=== PATIENT | male | born 1995 | race Caucasian/White ===

== ENCOUNTER 2022-07-15 19:14 | Emergency (ER) | payer SELFPAY ==
[2022-07-15] MEDS ORDERED: Sodium Chloride 0.9% 1,000 ML ONE ×2 (19:23→20:14)
[2022-07-15] MEDS ORDERED: Ketorolac Tromethamine 30 MG/ML VIAL ONE (19:23)
[2022-07-15] MEDS ORDERED: Ondansetron PF 4 MG/2 ML Vial ONE ×2 (19:23→20:56)
[2022-07-15] MEDS ORDERED: Tamsulosin HCl 0.4 MG CAP ONE (20:14)
[2022-07-15 20:22] LABS: Clarity Turbid (Clear)
[2022-07-15 20:24] LABS: Specific Gravity, Urine 1.028 (1.002-1.036)
[2022-07-15 20:29] LABS: Bacteria/HPF 4+ HPF (None Seen); Mucous/LPF 3+ LPF (<2+); RBC/HPF Greater than 50 HPF (0-3)
[2022-07-15] MEDS ORDERED: cefTRIAXone (ROCEPHIN) 1 GM VIAL ONE (20:56)
[2022-07-15] MEDS ORDERED: Morphine 2 MG/ML VIAL ONE (21:26)
[2022-07-15] MEDS ORDERED: traMADol HCl 50 MG TAB ONE (21:55)
== END 2022-07-15 22:05 | disposition home or self-care (01) ==
LOC: NAV ERS 19:14
DX: N13.2 Hydronephrosis with renal and ureteral calculous obstruction (principal); N39.0 Urinary tract infection, site not specified; F17.210 Nicotine dependence, cigarettes, uncomplicated
CPT/HCPCS: 74176; 81003; 81015; 87086; 96361; 96374; 96375; J0696; J1885; J2272; J2405; J7050

== ENCOUNTER 2023-12-19 10:04 | Emergency (ER) | payer SELFPAY ==
[2023-12-19] MEDS ORDERED: Ketorolac Tromethamine 30 MG (1 mL) VIAL ONE (10:30)
[2023-12-19] MEDS ORDERED: Ondansetron PF 4 MG/2 ML Vial ONE (10:30)
[2023-12-19] MEDS ORDERED: Sodium Chloride 0.9% 1,000 ML ONE (10:31)
[2023-12-19 10:56] LABS: #Basophils 0.1 thou/uL (0.0-0.2); #Eosinphils 0.1 thou/uL (0.0-0.7); #Lymphocytes 3.2 thou/uL (1.20-3.40); #Monocytes 1.3 thou/uL (0.11-0.59); #Neutrophils 15.3 thou/uL (1.40-6.50); %Basophils 0.7 % (0.0-1.0); %Eosinophils 0.5 % (0.0-10.0); %Lymphocytes 16.1 % (21.0-51.0); %Monocytes 6.4 % (0.0-10.0); %Neutrophils 76.3 % (42.0-75.0); Hematocrit 48.9 % (42.0-52.0); Hemoglobin 15.6 g/dL (14.0-18.0); Mean Corpuscular HGB CONC 31.9 g/dL (32.0-36.0); Mean Corpuscular Hemoglobin 29.2 pg (27.0-31.0); Mean Corpuscular Volume 91.6 fl (78.0-98.0); Mean Platelet Volume 8.5 fL (7.4-10.4); Platelet Count 257 10x3/uL (130-400); Red Blood Cell (RBC) Count 5.33 mill/uL (4.70-6.10); White Blood Cell (WBC) Count 20.1 10x3/uL (4.8-10.8)
[2023-12-19 11:04] LABS: Anion Gap 17 mmol/L (10-20); BUN (Urea Nitrogen) 12 mg/dL (8.9-20.6); Calc. Creatinine Clearance 0 mL/min (70-130); Calcium 10.3 mg/dL (7.8-10.44); Carbon Dioxide 26 mmol/L (22-29); Chloride 105 mmol/L (98-107); Estimated GFR 78; Glucose 156 mg/dL (70-105); Potassium 4.6 mmol/L (3.5-5.1); Sodium 143 mmol/L (136-145)
[2023-12-19 11:08] LABS: Bicarbonate (HCO3v) 30.4 mmol/L (22.0-28.0); CO2 Tension (PvCO2) 55.4 mmHg (42.0-51.0); Calcium, Ionized 1.22 mmol/L (1.15-1.33); Chloride 108 mmol/L (98-107); Hemoglobin - Calc 16.8 g/dL (14.0-18.0); Potassium 4.6 mmol/L (3.5-5.1); Sodium 147 mmol/L (138-145); T. Carbon Dioxide 32.1 mmol/L (22.0-28.0); vO2 Saturation-calc 19.2 % (60.0-85.0)
[2023-12-19] MEDS ORDERED: Promethazine HCl 25 MG/ML VIAL ONE (11:15)
[2023-12-19] MEDS ORDERED: cefTRIAXone (ROCEPHIN) 2 GM VIAL ONE (11:15)
[2023-12-19 11:50] LABS: Bilirubin Small (Negative); Blood, Urine Large (Negative); CAUTI Indications for Culture Dysuria,urgency,freq; Clarity Cloudy (Clear); Glucose, Urine (Dipstick) Negative (Negative); Ketone, Urine Trace mg/dL (Negative); Leukocyte Negative (Negative); Nitrite Negative (Negative); Protein, Urine (Dipstick) 100 mg/dL (Neg-Trace); RBC/HPF Greater than 50 HPF (0-3); Specific Gravity, Urine 1.025 (1.005-1.030)
[2023-12-19 11:51] LABS: Mucous/LPF 1+ LPF (<2+)
[2023-12-19 11:52] LABS: Urine Culture Reflex No No
== END 2023-12-19 12:41 | disposition home or self-care (01) ==
LOC: NAV ERS 10:04
DX: N20.0 Calculus of kidney (principal); F17.210 Nicotine dependence, cigarettes, uncomplicated
CPT/HCPCS: 74176; 80048; 81001; 82330; 82803; 83605; 85025; 96361; 96365; 96375; J0696; J1885; J2405; J2550; J7030

== ENCOUNTER 2023-12-29 18:35 | Emergency (ER) | payer SELFPAY ==
[2023-12-29] MEDS ORDERED: Sodium Chloride 0.9% 1,000 ML ONE ×2 (19:07→20:06)
[2023-12-29] MEDS ORDERED: Ondansetron PF 4 MG/2 ML Vial ONE (19:07)
[2023-12-29] MEDS ORDERED: Morphine 4 MG/ML VIAL ONE (19:07)
[2023-12-29] MEDS ORDERED: Ketorolac Tromethamine 30 MG (1 mL) VIAL ONE (19:07)
[2023-12-29 19:13] LABS: #Basophils 0.1 thou/uL (0.0-0.2); #Lymphocytes 3.7 thou/uL (1.20-3.40); #Monocytes 1.2 thou/uL (0.11-0.59); #Neutrophils 8.4 thou/uL (1.40-6.50); %Basophils 0.9 % (0.0-1.0); %Eosinophils 0.2 % (0.0-10.0); %Lymphocytes 27.5 % (21.0-51.0); %Monocytes 9.1 % (0.0-10.0); %Neutrophils 62.3 % (42.0-75.0); Hematocrit 49.4 % (42.0-52.0); Hemoglobin 16.6 g/dL (14.0-18.0); Mean Corpuscular HGB CONC 33.6 g/dL (32.0-36.0); Mean Corpuscular Hemoglobin 29.8 pg (27.0-31.0); Mean Corpuscular Volume 88.7 fl (78.0-98.0); Mean Platelet Volume 8.2 fL (7.4-10.4); Platelet Count 314 10x3/uL (130-400); RBC Distribution Width 11.8 % (11.5-14.5); Red Blood Cell (RBC) Count 5.57 mill/uL (4.70-6.10); White Blood Cell (WBC) Count 13.5 10x3/uL (4.8-10.8)
[2023-12-29 19:15] LABS: Bilirubin Moderate (Negative); Blood, Urine Large (Negative); Clarity Slightly Cloudy (Clear); Glucose, Urine (Dipstick) Negative (Negative); Ketone, Urine 40 mg/dL (Negative); Leukocyte Negative (Negative); Nitrite Negative (Negative); Protein, Urine (Dipstick) 100 mg/dL (Neg-Trace); Specific Gravity, Urine 1.025 (1.005-1.030); Urobilinogen 0.2 mg/dL (Less than 2)
[2023-12-29 19:28] LABS: ALT (SGPT) 66 U/L (8-55); AST (SGOT) 27 U/L (5-34); Albumin 5.3 g/dL (3.5-5.0); Alkaline Phosphatase 78 U/L (40-110); Anion Gap 25 mmol/L (10-20); BUN (Urea Nitrogen) 24 mg/dL (8.9-20.6); Bilirubin, Total 1.8 mg/dL (0.2-1.2); Calc. Creatinine Clearance 0 mL/min (70-130); Calcium 11.1 mg/dL (7.8-10.44); Carbon Dioxide 21 mmol/L (22-29); Chloride 98 mmol/L (98-107); Estimated GFR 72; Globulin 3.4 g/dL (2.4-3.5); Glucose 112 mg/dL (70-105); Potassium 3.7 mmol/L (3.5-5.1); Protein, Total 8.7 g/dL (6.0-8.3); Sodium 140 mmol/L (136-145)
[2023-12-29 19:47] LABS: Bacteria/HPF 2+ HPF (None Seen); CAUTI Indications for Culture Pelvic or flank pain; Mucous/LPF 2+ LPF (<2+); RBC/HPF Greater than 50 HPF (0-3); Squamous Epithelial None Seen HPF (0-3); Transitional Epithelial 0-3 HPF (None Seen)
[2023-12-29 19:48] LABS: Urine Culture Reflex No No
== END 2023-12-29 21:14 | disposition home or self-care (01) ==
LOC: NAV ERS 18:35
DX: N20.1 Calculus of ureter (principal); E86.0 Dehydration; R11.2 Nausea with vomiting, unspecified; F17.210 Nicotine dependence, cigarettes, uncomplicated
CPT/HCPCS: 74176; 80053; 81001; 85025; 94760; 96361; 96374; 96375; J1885; J2272; J2405; J7030